=== PATIENT | female | born 1935 | race Caucasian/White ===

== ENCOUNTER 2018-07-02 07:21 | Emergency (ER) | payer MEDICARE ==
[2018-07-02] MEDS ORDERED: Oxymetazoline 0.05% NASAL SPR* 15 ML BTL BOTH NARES ONE (07:29)
[2018-07-02] MEDS ORDERED: Phenylephrine 0.5% NASAL* BTL ONE (07:40)
--- NOTE | 2018-07-02 07:55 | UC ---
General HPI - HPI Summary HPI Summary: Here with Granddaughter - poor historian. States for the past three mornings she has woken with a nose bleed. This morning it did not stop and after an hour came here. Granddaughter states it was dripping out of her right side of her nose. She as concerned because it was draining down her throat and she was coughing up clots. No lightheadedness or dizziness. No CP or SOB. States she hasn't dare tried to blow her nose. Just wiping it. Denies having congestion or recent illness. Denies picking her nose. No trauma. Meds: reviewed including ASA 81 mg - History of Current Complaint Chief Complaint: UCCardiac Stated Complaint: bloody nose Time Seen by Provider: 07/02/18 07:29 Pain Intensity: 0 - Allergy/Home Medications Allergies/Adverse Reactions: Allergies Allergy/AdvReac Type Severity Reaction Status Date / Time blood pressure medicine Allergy Unknown Uncoded 07/02/18 07:38 Reaction Details Home Medications: Home Medications Aspirin 81 mg PO DAILY 07/02/18 [History Confirmed 07/02/18] PMH/Surg Hx/FS Hx/Imm Hx Previously Healthy: Yes Cardiovascular History: Hypertension - Surgical History Surgical History: Yes Surgery Procedure, Year, and Place: cholecystectomy. hip fracture repair - Social History Alcohol Use: None Substance Use Type: None Smoking Status (MU): Never Smoked Tobacco Review of Systems All Other Systems Reviewed And Are Negative: Yes Constitutional: Positive: Negative ENT: Positive: Epistaxis Respiratory: Positive: Cough Physical Exam Triage Information Reviewed: Yes Appearance: Well-Appearing Vital Signs: Initial Vital Signs Temp 98.5 F 07/02/18 07:25 Pulse 114 07/02/18 07:25 Resp 18 07/02/18 07:25 BP 175/114 07/02/18 07:25 Pulse Ox 94 07/02/18 07:25 Vital Signs Reviewed: Yes ENT: Positive: Pharynx normal, Other - right nare: blood clots with slow oozing anterior nare. Left nare; normal Neck: Positive: Supple Respiratory: Positive: Lungs clear, Normal breath sounds Cardiovascular: Positive: No Murmur, Tachycardia Course/Dx - Course Course Of Treatment: This is an 83 yr old with epistaxis Assessment Day three of epistaxis Left clots in nose with near hemostasis Nasal neosynephrine given, nasal clamp placed. Patient remained asymptomatic Repeat BP improved Mild drainage in throat Plan Recommend afrin to 2-3 sprays 2xday for 3 days Follow up with ENT at 9:[address] Discontinue aspirin until seen by primary care physician Take morning blood pressure medications - Diagnoses Provider Diagnosis: Epistaxis Discharge - Sign-Out/Discharge Documenting (check all that apply): Patient Departure All imaging exams completed and their final reports reviewed: No Studies - Discharge Plan Condition: Fair Disposition: HOME Patient Education Materials: Nosebleed (ED) Referrals: Nicole Weathers [Primary Care Provider] - Additional Instructions: Recommend afrin to 2-3 sprays 2xday for 3 days Follow up with ENT at 9:[address] Discontinue aspirin until seen by primary care physician Take morning blood pressure medications - Billing Disposition and Condition Condition: FAIR Disposition: Home
[2018-07-02 08:20] VITALS: BP 132/90
== END 2018-07-02 08:41 | disposition home or self-care (01) ==
LOC: UCEAST 07:21
DX: R04.0 Epistaxis (principal); I10 Essential (primary) hypertension; Z79.82 Long term (current) use of aspirin; Z88.8 Allergy status to other drugs, medicaments and biological substances
CPT/HCPCS: 30901; 99212; A9270-GY; G0463

== ENCOUNTER 2023-04-29 16:19 | Inpatient (IN) ==
[2023-04-29] MEDS ORDERED: NS 0.9% 500 ml BAG 500 ML IV ONE ×2 (16:37→17:34)
[2023-04-29 17:04] LABS: ABS Lymphocytes 0.6 10^3/uL (1.0-4.8); ABS Neutrophils 10.7 10^3/uL (1.5-7.6); Eosinophil % 0.1 %; Hematocrit 40.9 % (35-45); Hemoglobin 13.9 g/dL (11.5-14.3); Lymphocyte % 5.1 %; Mean Corpuscular Hemoglobin 30.5 pg (27-33); Mean Corpuscular Volume 89.7 fL (80-97); Mean Platelet Volume 7.6 fL (7.5-11.2); Platelet Count 303 10^3/uL (150-450); Red Blood Count 4.56 10^6/uL (3.63-4.92); Red Cell Distribution Width 14.9 % (12-17); White Blood Count 12.4 10^3/uL (3.8-11.8)
[2023-04-29 17:17] LABS: INR 1.02 (0.83-1.13)
[2023-04-29 17:22] LABS: Albumin 4.1 g/dL (3.2-5.2); C Reactive Protein 49.15 mg/L (<8.01); Calcium 9.7 mg/dL (8.6-10.3); Creatinine, Serum 0.62 mg/dL (0.51-0.95); Globulin 4.2 g/dL (2-4); Magnesium 1.9 mg/dL (1.9-2.7); Potassium 3.5 mmol/L (3.5-5.0); Total Bilirubin 0.6 mg/dL (0.2-1.0); Total Protein 8.3 g/dL (6.4-8.9); eGFR CKD-EPI 85.6 (>60)
[2023-04-29 17:30] LABS: HCG Pregnancy 4.26 mIU/mL
[2023-04-29 17:31] LABS: Urine Appearance Cloudy; Urine Bilirubin Negative (Negative); Urine Blood 2+ (Negative); Urine Color Yellow; Urine Glucose Negative (Negative); Urine Ketones Negative (Negative); Urine Nitrite Negative (Negative); Urine Protein 2+(100 mg/dL) (Negative); Urine Specific Gravity 1.013 (1.002-1.030); Urine Urobilinogen Negative (Negative)
[2023-04-29] MEDS ORDERED: cefTRIAXone 1 gm/50 mL D5W 1 GM/50 ML BAG IV ONE (17:36)
[2023-04-29 17:41] LABS: Urine Bacteria 1+ (Absent); Urine Red Blood Cell 3+(>10/hpf) (Absent); Urine Squamous Epithelial Cell Present (Absent); Urine White Blood Cell 3+(>20/hpf) (Absent)
[2023-04-29 18:41] LABS: High Sensitivity Troponin 1 Hr 21 pg/mL (<15)
[2023-04-29] MEDS ORDERED: Lactated Ringers 1000 ml BAG 1,000 ML IV SCH (20:00)
[2023-04-29] MEDS ORDERED: Enoxaparin 30 MG/0.3 ML SYR SUBCUT SCH (20:00)
[2023-04-29] MEDS: Enoxaparin 40 MG/0.4 ML SYR SUBCUT SCH (21:08)
[2023-04-30 05:15] LABS: ABS Basophils 0.1 10^3/uL (0.0-0.1); ABS Eosinophils 0.2 10^3/uL (0.0-0.5); ABS Lymphocytes 2.3 10^3/uL (1.0-4.8); ABS Monocytes 0.9 10^3/uL (0.0-0.9); ABS Neutrophils 5.4 10^3/uL (1.5-7.6); ABS Nucleated RBC 0.01 10^3/ul; Eosinophil % 1.9 %; Hematocrit 36.1 % (35-45); Hemoglobin 12.3 g/dL (11.5-14.3); Lymphocyte % 26.1 %; Mean Corpuscular Hemoglobin 30.6 pg (27-33); Mean Corpuscular Hgb Conc 34.2 g/dL (31-36); Mean Corpuscular Volume 89.5 fL (80-97); Mean Platelet Volume 7.5 fL (7.5-11.2); Nucleated Red Blood Cells % 0.1 %/100WBC (0.0-0.8); Platelet Count 273 10^3/uL (150-450); Red Blood Count 4.03 10^6/uL (3.63-4.92); Red Cell Distribution Width 14.5 % (12-17); White Blood Count 8.9 10^3/uL (3.8-11.8)
[2023-04-30 05:32] LABS: Calcium 8.8 mg/dL (8.6-10.3); Creatinine, Serum 0.56 mg/dL (0.51-0.95); Magnesium 1.8 mg/dL (1.9-2.7); Potassium 3.5 mmol/L (3.5-5.0); eGFR CKD-EPI 87.7 (>60)
[2023-04-30] MEDS ORDERED: Magnesium Sulfate 2 gm BAG 2 GM/50 ML BAG IVPB ONE (11:18)
[2023-04-30] MEDS: cefTRIAXone 1 gm/50 mL D5W 1 GM/50 ML BAG IV SCH (17:12)
[2023-04-30] MEDS ORDERED: cefTRIAXone 1 gm/50 mL D5W 1 GM/50 ML BAG IV SCH (18:00)
[2023-04-30] MEDS: Enoxaparin 40 MG/0.4 ML SYR SUBCUT SCH (20:55)
[2023-05-01 06:25] LABS: ABS Basophils 0.1 10^3/uL (0.0-0.1); ABS Eosinophils 0.1 10^3/uL (0.0-0.5); ABS Neutrophils 6.2 10^3/uL (1.5-7.6); Eosinophil % 0.9 %; Hematocrit 36.4 % (35-45); Hemoglobin 12.4 g/dL (11.5-14.3); Lymphocyte % 21.1 %; Mean Corpuscular Hemoglobin 30.7 pg (27-33); Mean Corpuscular Hgb Conc 34.1 g/dL (31-36); Mean Corpuscular Volume 90.2 fL (80-97); Mean Platelet Volume 7.3 fL (7.5-11.2); Platelet Count 291 10^3/uL (150-450); Red Blood Count 4.04 10^6/uL (3.63-4.92); Red Cell Distribution Width 14.5 % (12-17); White Blood Count 9.3 10^3/uL (3.8-11.8)
[2023-05-01 06:41] LABS: C Reactive Protein 38.16 mg/L (<8.01); Creatinine, Serum 0.81 mg/dL (0.51-0.95); Magnesium 2.2 mg/dL (1.9-2.7); Phosphorus 4.1 mg/dL (2.5-5.0); Potassium 3.2 mmol/L (3.5-5.0); eGFR CKD-EPI 69.8 (>60)
[2023-05-01] MEDS ORDERED: Lactated Ringers 1000 ml BAG 1,000 ML IV ONE (08:25)
[2023-05-01] MEDS: KCL 20 MEQ/100 ML IVPREMIX 20 MEQ/100 ML BAG IV SCH ×2 (14:55→17:02)
[2023-05-01] MEDS: Enoxaparin 40 MG/0.4 ML SYR SUBCUT SCH (20:44)
[2023-05-01] MEDS: cefTRIAXone 1 gm/50 mL D5W 1 GM/50 ML BAG IV SCH (20:51)
[2023-05-02 06:51] LABS: ABS Basophils 0.1 10^3/uL (0.0-0.1); ABS Eosinophils 0.1 10^3/uL (0.0-0.5); ABS Lymphocytes 2.4 10^3/uL (1.0-4.8); ABS Monocytes 0.9 10^3/uL (0.0-0.9); ABS Neutrophils 4.7 10^3/uL (1.5-7.6); ABS Nucleated RBC 0.01 10^3/ul; Eosinophil % 1.5 %; Hemoglobin 11.5 g/dL (11.5-14.3); Lymphocyte % 28.9 %; Mean Corpuscular Hemoglobin 30.4 pg (27-33); Mean Corpuscular Volume 89.4 fL (80-97); Mean Platelet Volume 7.6 fL (7.5-11.2); Nucleated Red Blood Cells % 0.1 %/100WBC (0.0-0.8); Platelet Count 284 10^3/uL (150-450); Red Cell Distribution Width 14.6 % (12-17); White Blood Count 8.3 10^3/uL (3.8-11.8)
[2023-05-02 07:05] LABS: Calcium 8.6 mg/dL (8.6-10.3); Creatinine, Serum 0.55 mg/dL (0.51-0.95); Magnesium 1.8 mg/dL (1.9-2.7); Phosphorus 2.8 mg/dL (2.5-5.0); Potassium 3.4 mmol/L (3.5-5.0); eGFR CKD-EPI 88.1 (>60)
[2023-05-02] MEDS ORDERED: Potassium Chloride LIQUID 20 MEQ/15 ML LIQUID PO ONE (08:08)
[2023-05-02] MEDS: cefTRIAXone 1 gm/50 mL D5W 1 GM/50 ML BAG IV SCH (17:59)
[2023-05-02] MEDS: Enoxaparin 40 MG/0.4 ML SYR SUBCUT SCH (19:57)
[2023-05-02] MEDS: Senna TAB 8.6 mg TAB PO PRN (19:58)
[2023-05-03] MEDS ORDERED: Pneumococcal Vac 23-Polyvalent IM ONE (14:00)
[2023-05-03] MEDS ORDERED: Influenza vaccine *QUAD* *2023-24* 0.5 ML SYRINGE IM ONE (14:00)
[2023-05-03] MEDS: cefTRIAXone 1 gm/50 mL D5W 1 GM/50 ML BAG IV SCH (18:34)
[2023-05-03] MEDS: Enoxaparin 40 MG/0.4 ML SYR SUBCUT SCH (19:59)
[2023-05-03] MEDS ORDERED: Labetalol IV 5 MG/ML 20 ml VIAL IV PUSH ONE (23:05)
[2023-05-04] MEDS: Senna TAB 8.6 mg TAB PO PRN (05:35)
[2023-05-04 09:01] VITALS: BP 172/95
[2023-05-04 09:16] LABS: Rapid COVID-19 Molecular Undetected (Undetected)
== END 2023-05-04 10:00 | DRG 872 ==
LOC: ED 16:19 → EDHOLD 16:19 → SUATTDRO 18:16 → MED 04-30 14:31
PROVIDERS: ADMIT Internal Medicine; ATTEND Internal Medicine